=== PATIENT | female | born 1945 | race Caucasian/White ===

== ENCOUNTER 2018-06-16 05:53 | Inpatient (IN) | payer MEDICARE, BC ==
[2018-06-16] MEDS: CEFAZOLIN 2 GM/50 ML (PMX) 50 ML IVPB ×3 (06:00→23:37)
[2018-06-16] MEDS: TRANEXAMIC ACID 1GM/100ML(PMX) 100 ML PRE-OP X1 IVPB (06:00)
[2018-06-16] MEDS: ACETAMINOPHEN 1000MG/100ML IV 100 ML IVPB (06:39)
[2018-06-16] MEDS: DEXAMETHASONE 4 MG/ML 1 ML INJ IV (06:46)
[2018-06-16] MEDS: ACETAMINOPHEN 500 MG TAB PO (06:47)
[2018-06-16] MEDS: POLYMYXIN B 500000 UNIT INJ (07:21)
[2018-06-16] MEDS: BACITRACIN 50000 UNITS INJ (07:22)
[2018-06-16] MEDS ORDERED: PROPOFOL 20 ML (07:33)
[2018-06-16] MEDS ORDERED: LIDOCAINE 2% (SDV) 5 ML INJ (07:34)
[2018-06-16] MEDS ORDERED: ROCURONIUM 50 MG INJ ×2 (07:34→09:18)
[2018-06-16] MEDS ORDERED: MIDAZOLAM 1 MG/ML 2 ML INJ (07:34)
[2018-06-16] MEDS ORDERED: FENTAnyl 50 MCG/ML VIAL (07:36)
[2018-06-16] MEDS ORDERED: ONDANSETRON 4 MG INJ ×2 (07:56→09:33)
[2018-06-16] MEDS ORDERED: DEXAMETHASONE 4 MG/ML 5 ML INJ (07:56)
[2018-06-16] MEDS ORDERED: EPHEDrine 25 MG/5 ML SYG (08:05)
[2018-06-16] MEDS ORDERED: PHENYLephrine (100 MCG/ML) 10ML SYG (08:05)
[2018-06-16] MEDS ORDERED: GLYCOPYRROLATE 0.4 MG INJ (09:18)
[2018-06-16] MEDS ORDERED: NEOSTIGMINE 3 MG/3 ML SYRINGE (09:18)
[2018-06-16] MEDS ORDERED: DIPHENHYDRAMINE 50 MG INJ IV (09:30)
[2018-06-16] MEDS ORDERED: METOCLOPRAMIDE 10 MG INJ IV (09:30)
[2018-06-16] MEDS ORDERED: MAGNESIUM HYDROXIDE 30ML CUP PO (09:30)
[2018-06-16] MEDS ORDERED: OXYCODONE/ACETAMINOPHEN (5/325) TAB PO ×2 (09:30)
[2018-06-16] MEDS ORDERED: LABETALOL HCL 20MG INJ IV (09:30)
[2018-06-16] MEDS ORDERED: KETOROLAC 30 MG INJ IV (09:30)
[2018-06-16] MEDS ORDERED: NACL 0.9% 3 ML SYG IV (09:30)
[2018-06-16] MEDS ORDERED: CEFAZOLIN 2 GM/50 ML (PMX) 50 ML IVPB (09:30)
[2018-06-16] MEDS ORDERED: oxyCODONE 5 MG TAB PO (09:30)
[2018-06-16] MEDS ORDERED: ALBUTEROL 0.083% (NEB) 2.5 MG/3 ML AMP HHN (09:30)
[2018-06-16] MEDS ORDERED: FENTAnyl 50 MCG/ML VIAL IV ×3 (09:30)
[2018-06-16] MEDS ORDERED: MEPERIDINE 25 MG INJ IV (09:30)
[2018-06-16] MEDS ORDERED: hydrALAzine 20 MG INJ IV (09:30)
[2018-06-16] MEDS ORDERED: EPHEDrine SULFATE 50 MG/5 ML SYG IV (09:30)
[2018-06-16] MEDS ORDERED: HYDROmorphONE 1 MG/5 ML IV SYRINGE IV ×3 (09:30→09:54)
[2018-06-16] MEDS ORDERED: NALOXONE (0.4 MG/ML) INJ IV (09:30)
[2018-06-16] MEDS: HYDROmorphONE 1 MG/5 ML IV SYRINGE IV (10:02)
[2018-06-16] MEDS: LACTATED RINGER'S 1,000 ML IV* (10:04)
[2018-06-16] MEDS: TRANEXAMIC ACID 1GM/100ML(PMX) 100 ML INTRA-OP X1 IVPB (10:08)
[2018-06-16] MEDS: ONDANSETRON 4 MG INJ IV (10:21)
[2018-06-16] MEDS: LACTATED RINGER'S 1,000 ML IV ×2 (10:24→21:33)
[2018-06-16] MEDS: GABAPENTIN 100 MG CAP PO ×2 (13:22→21:55)
[2018-06-16] MEDS: oxyCODONE 5 MG TAB PO ×3 (13:55→21:55)
[2018-06-16] MEDS: NICOTINE (14 MG/24 HR) PATCH TRANSDERM (15:55)
[2018-06-16] MEDS ORDERED: ALBUTEROL HFA 8 GM INHALER INH ×2 (16:00→20:00)
[2018-06-16] MEDS: FLUTICASONE/VILANTEROL 100-25 INH (20:00)
[2018-06-16] MEDS ORDERED: NON-FORMULARY/PATIENT OWN MED (Varenicline Tartrate (Chantix) 1 MG) PO (21:00)
[2018-06-16] MEDS: KETOROLAC 15 MG INJ IV (23:35)
[2018-06-17] MEDS: oxyCODONE 5 MG TAB PO ×3 (02:30→10:56)
[2018-06-17] MEDS: LACTATED RINGER'S 1,000 ML IV (03:58)
[2018-06-17 05:24] LABS: ADD MAN DIFF? NO
[2018-06-17 05:34] LABS: BASOPHILS % 0.2 % (0.0-2.0); EOSINOPHILS % 0.2 % (0.0-7.0); HEMATOCRIT 27.5 % (37.0-47.0); HEMOGLOBIN 8.8 g/dl (12.0-16.0); LYMPHOCYTES # 1.6 10^3/ul (0.8-2.9); LYMPHOCYTES % 13.7 % (15.0-51.0); MEAN CORPUSCULAR HEMOGLOBIN 31.3 pg (29.0-33.0); MEAN CORPUSCULAR VOLUME 97.9 fl (82.0-101.0); MEAN PLATELET VOLUME 10.1 fl (7.4-10.4); MONOCYTES % 8.4 % (0.0-11.0); NEUTROPHILS % 77.1 % (39.0-77.0); PLATELET COUNT 260 10^3/UL (140-415); RED BLOOD COUNT 2.81 10^6/ul (4.20-5.40); RED CELL DISTRIBUTION WIDTH 14.4 % (11.5-14.5)
[2018-06-17 05:34] LABS: WHITE BLOOD COUNT 11.7 10^3/ul (4.8-10.8)
[2018-06-17] MEDS: PANTOPRAZOLE (EC) 40 MG TAB PO (05:50)
[2018-06-17 06:14] LABS: ANION GAP 5 (5-13); BLOOD UREA NITROGEN 18 mg/dl (7-20); CALCIUM 8.8 mg/dl (8.4-10.2); CARBON DIOXIDE 29 mmol/L (21-31); CHLORIDE 106 mmol/L (97-110); Estimated GFR > 60 mL/min (>60); GLUCOSE 111 mg/dl (70-220); POTASSIUM 4.1 mmol/L (3.5-5.1); SODIUM 140 mmol/L (135-144)
[2018-06-17] MEDS: ONDANSETRON 4 MG INJ IV (06:28)
[2018-06-17] MEDS: CEFAZOLIN 2 GM/50 ML (PMX) 50 ML IVPB (07:56)
[2018-06-17] MEDS: NICOTINE (14 MG/24 HR) PATCH TRANSDERM (08:01)
[2018-06-17] MEDS: FLUTICASONE/VILANTEROL 100-25 INH (08:01)
[2018-06-17] MEDS: CELECOXIB 100 MG CAP PO (08:11)
[2018-06-17] MEDS: GABAPENTIN 100 MG CAP PO ×2 (08:12→13:04)
[2018-06-17] MEDS: ASPIRIN (EC) 81 MG TAB PO (08:12)
[2018-06-17] MEDS ORDERED: NON-FORMULARY/PATIENT OWN MED (Umeclidinium Bromide (Incruse Ellipta) 62.5 MCG) IH (09:00)
[2018-06-17] MEDS: DOCUSATE SODIUM 100 MG CAP PO (09:00)
[2018-06-17] MEDS ORDERED: ONDANSETRON 4 MG INJ IV (09:30)
== END 2018-06-17 14:17 | disposition home health service (06) | DRG 470 ==
LOC: REC 05:53 → MS1 11:25
PROC: 0SR904Z Replacement of Right Hip Joint with Ceramic on Polyethylene Synthetic Substitute, Open Approach (ICD-10-PCS; principal; 2018-06-16 07:30)
DX: M16.11 Unilateral primary osteoarthritis, right hip (principal); J44.9 Chronic obstructive pulmonary disease, unspecified; F17.200 Nicotine dependence, unspecified, uncomplicated
CPT/HCPCS: 73530; 80048; 85025; 86850; 86900; 86901; 87081; 88304; 88311; 97116; 97161; 97167; 97530